=== PATIENT | female | born 1970 | race Caucasian/White ===

== ENCOUNTER 2017-05-05 16:42 | Emergency (ER) | payer BC, OTHER ==
[~2017-05-05] VITALS: Ht 177.8 cm; Wt 88.9 kg
[~2017-05-05 16:42] MED LIST: AMITRIPTYLINE H25 M2 PO; AMOXICILLIN500 M1 PO; BACTRIM DS TAB1 EACH PO; CLINDAMYCIN HC150 MG OR; IBUPROFEN 600600 M1 PO; IBUPROFEN 800800 MG PO; ISOMETHEPT-DIC1 EACH PO; METFORMIN HCL500 MG PO; NAPROSYN500 MG PO; NOHOMEMEDICATIONS; PERCOCET 5-3251 EACH PO; TESSALON PERLE100 MG PO; VALIUM2 MG PO; VITAMIN D3400 UNIT PO; ZPAK PO
[2017-05-05] MEDS ORDERED: IBUPROFEN 600600 M1 PO (18:07)
[2017-05-05 18:16] VITALS: BP 119/74
== END 2017-05-05 18:18 | disposition home or self-care (01) ==
LOC: ER 16:42
DX: S60.011A Contusion of right thumb without damage to nail, initial encounter (principal); Z98.890 Other specified postprocedural states; Z88.5 Allergy status to narcotic agent; X58.XXXA Exposure to other specified factors, initial encounter; Y93.89 Activity, other specified; Y92.89 Other specified places as the place of occurrence of the external cause; Y99.8 Other external cause status

== ENCOUNTER 2018-08-13 17:10 | Emergency (ER) | payer BC, OTHER ==
[~2018-08-13] VITALS: Ht 177.8 cm; Wt 95.3 kg
[2018-08-13 17:16] VITALS: BP 117/61
[2018-08-13] MEDS ORDERED: IBUPROFEN 800800 M1 PO (17:25)
[2018-08-13] MEDS ORDERED: SINGULAIR 10 MG10 M1 PO (17:25)
[2018-08-13] MEDS ORDERED: LASIX 20 MG TAB20 MG PO (17:25)
[2018-08-13] MEDS ORDERED: BUTALB-APAP-CA1 EACH PO (17:27)
[2018-08-13] MEDS ORDERED: PREDNISONE 20 M20 MG PO (18:09)
[2018-08-13] MEDS ORDERED: CEFDINIR300 MG PO (18:09)
== END 2018-08-13 18:18 | disposition home or self-care (01) ==
LOC: ER 17:10
DX: J01.90 Acute sinusitis, unspecified (principal); Z88.5 Allergy status to narcotic agent; Z88.8 Allergy status to other drugs, medicaments and biological substances